=== PATIENT | male | born 1955 | race Caucasian/White ===

== ENCOUNTER 2016-10-04 05:56 | Emergency (ER) | payer BC ==
[~2016-10-04] VITALS: Ht 175.3 cm; Wt 73.0 kg
[~2016-10-04 05:56] MED LIST: ASPI81CH CHEW; LEVO200T4 PO; PRIL20CA9 PO
[2016-10-04 06:00] VITALS: BP 129/79; PULSE 77; RESP 18; TEMP 96.4; O2SAT 98
[2016-10-04] MEDS ORDERED: SODIUM CHLOR 0.9% 1000 ML INJ 1,000 ML IV SCH (06:38)
[2016-10-04] MEDS ORDERED: ONDANSETRON HCL 4 MG/2 ML VIAL IVP ONE (06:45)
[2016-10-04] MEDS ORDERED: SODIUM CHLORIDE 0.9% FLUSH 5 ML FLUSH IVF PRN (06:45)
[2016-10-04] MEDS ORDERED: MORPHINE SULFATE 8 MG/ML INJ IV PUSH ONE (06:45)
[2016-10-04 06:50] VITALS: RESP 16; O2SAT 98
[2016-10-04 06:51] VITALS: BP 123/66; PULSE 77; RESP 16; O2SAT 99
--- NOTE | 2016-10-04 06:51 | PD ---
HPI Chief Complaint: Abdominal Pain Time Seen by Provider: 06:38 Travel History International Travel<30 days: No Contact w/Intl Traveler<30days: No Traveled to known affect area: No History of Present Illness HPI This is a 61-year-old gentleman with a history of pancreatitis, hypertension, hyperlipidemia, previous CVA, previous alcohol abuse, who presents today with complaints of severe abdominal pain with associated nausea vomiting and loose stools 2. Patient states that the abdominal discomfort started yesterday. He states last night he had a bowel movement to relieve the discomfort. He states this morning when he went to go get coffee, he had an episode of severe abdominal pain that doubled him over. He reports that the nausea and vomiting of is associated with the belly pain. He denies any previous history of such but does state that he's had pancreatitis in the past where he's had abdominal pain but not this bad. He reports his pain as a 10 out of 10 on the pain scale. He reports it as diffuse lower abdominal discomfort. It fevers, chills. He states that yesterday he had a hot dog and nothing out of the ordinary. PFSH Past Medical History Hx Anticoagulant Therapy: Yes (ASA-STOPPED 5 DAYS AGO) Blood Disorders: No Anxiety: No Depression: Yes Cancer: No Cardiovascular Problems: No High Cholesterol: Yes Chemotherapy: No Cerebrovascular Accident: Yes Diabetes: No Diminished Hearing: No Endocrine: Yes (FAMILY HX OF DM) Gastrointestinal Disorders: Yes GERD: Yes Genitourinary: No Hepatitis: Yes (HEPATITIS C) Hypertension: Yes Immune Disorder: No Musculoskeletal: No Neurologic: Yes Psychiatric: Yes Immunizations Current: Yes Pancreatitis: Yes Seizures: Yes Thyroid Disease: Yes (HYPO) Tetanus Vaccination: > 5 Years Influenza Vaccination: No Past Surgical History Surgical History: No Previous Surgery Hysterectomy: No Other Surgery: No Social History Alcohol Use: No (states "no more") Tobacco Use: Yes (1PPD) Substance Use: Yes (POT) Allergies-Medications (Allergen,Severity, Reaction): Uncoded Allergies: SELDAN (Allergy, Severe, EDEMA, 10/04/16) Reported Meds & Prescriptions Reported Meds & Active Scripts Active Reported Levothyroxine (Levothyroxine Sodium) 200 Mcg Tab 200 Mcg PO DAILY Prilosec (Omeprazole) 20 Mg Cap 20 Mg PO BID Aspirin 81 Mg Chew 81 Mg CHEW DAILY Review of Systems Except as stated in HPI: all other systems reviewed are Neg General / Constitutional: No: Fever, Chills HENT: No: Headaches, Lightheadedness Cardiovascular: No: Chest Pain or Discomfort, Palpitations Respiratory: No: Cough, Shortness of Breath Gastrointestinal: Positive: Nausea, Vomiting, Diarrhea, Abdominal Pain Genitourinary: No: Frequency, Dysuria Musculoskeletal: No: Weakness, Pain Neurologic: No: Weakness, Dizziness Physical Exam Narrative GENERAL: Well-developed well-nourished gentleman who is actively vomiting when I entered the room. The patient appeared to be diaphoretic. SKIN: Warm and dry. HEAD: Atraumatic. Normocephalic. EYES: No scleral icterus. No injection or drainage. ENT: Mucous membranes pink and moist. NECK: Trachea midline. Supple CARDIOVASCULAR: Regular rate and rhythm. No murmur appreciated. RESPIRATORY: No accessory muscle use. Clear to auscultation. Breath sounds equal bilaterally. GASTROINTESTINAL: Abdomen soft, nondistended. He has tenderness to palpation in his bilateral lower quadrants. There is no rebound with minimal guarding. MUSCULOSKELETAL: No obvious deformities. No edema. NEUROLOGICAL: Awake and alert. No obvious cranial nerve deficits. Motor grossly within normal limits. Normal speech. Data Data Last Documented VS Vital Signs Date Time Temp Pulse Resp B/P Pulse Ox O2 Delivery O2 Flow Rate FiO2 10/04/16 06:51 77 16 123/66 99 Room Air 10/04/16 06:00 96.4 Orders Complete Blood Count With Diff (10/04/16 06:38) Comprehensive Metabolic Panel (10/04/16 06:38) Lipase (10/04/16 06:38) Urinalysis - C+S If Indicated (10/04/16 06:38) Iv Access Insert/Monitor (10/04/16 06:38) Ecg Monitoring (10/04/16 06:38) Oximetry (10/04/16 06:38) Ondansetron Inj (Zofran Inj) (10/04/16 06:45) Sodium Chlor 0.9% 1000 Ml Inj (Ns 1000 M (10/04/16 06:38) Sodium Chloride 0.9% Flush (Ns Flush) (10/04/16 06:45) Abdomen, Upright Only (10/04/16 06:38) Morphine Inj (Morphine Inj) (10/04/16 06:45) Labs Laboratory Tests Test 10/04/16 06:40 White Blood Count 9.0 TH/MM3 Red Blood Count 3.13 MIL/MM3 Hemoglobin 9.5 GM/DL Hematocrit 28.3 % Mean Corpuscular Volume 90.3 FL Mean Corpuscular Hemoglobin 30.3 PG Mean Corpuscular Hemoglobin 33.6 % Concent Red Cell Distribution Width 14.0 % Platelet Count 274 TH/MM3 Mean Platelet Volume 7.2 FL Neutrophils (%) (Auto) 67.6 % Lymphocytes (%) (Auto) 23.1 % Monocytes (%) (Auto) 7.4 % Eosinophils (%) (Auto) 1.5 % Basophils (%) (Auto) 0.4 % Neutrophils # (Auto) 6.1 TH/MM3 Lymphocytes # (Auto) 2.1 TH/MM3 Monocytes # (Auto) 0.7 TH/MM3 Eosinophils # (Auto) 0.1 TH/MM3 Basophils # (Auto) 0.0 TH/MM3 CBC Comment DIFF FINAL Differential Comment MDM Medical Decision Making Medical Screen Exam Complete: Yes Emergency Medical Condition: Yes Medical Record Reviewed: Yes Differential Diagnosis Acute full born illness versus diverticulitis versus appendicitis versus pancreatitis Narrative Course 61-year-old gentleman with history of pancreatitis, hepatitis, previous alcohol abuse, presents today with points of nausea vomiting and loose stools 2. The patient reports the pain is 10 out of 10. The patient has tenderness to palpation in his lower quadrants bilaterally. There is no rebound or guarding noted. Labs are pending at this time including urinalysis. He'll be signed out to Dr. Serna who will follow up on the results and make appropriate disposition pending lab results. Diagnosis Primary Impression: Abdominal pain Additional Impression: Nausea & vomiting Gagandeep Bashir MD Oct 04, 2016 06:51
[2016-10-04 07:08] LABS: AUTOMATED NEUTROPHIL # 6.1 TH/MM3 (1.8-7.7); BASOPHIL % 0.4 % (0.0-2.0); EOSINOPHIL # 0.1 TH/MM3 (0-0.4); EOSINOPHIL % 1.5 % (0.0-4.0); HEMATOCRIT 28.3 % (39.0-51.0); HEMO FLAGS DIFF FINAL; LYMPH % 23.1 % (9.0-44.0); LYMPHOCYTE # 2.1 TH/MM3 (1.0-4.8); MEAN CELL VOLUME 90.3 FL (80.0-100.0); MEAN CORPUSCULAR HEMOGLOBIN 30.3 PG (27.0-34.0); MEAN CORPUSCULAR HGB CONC 33.6 % (32.0-36.0); MONO % 7.4 % (0.0-8.0); NEUT % 67.6 % (16.0-70.0); PLATELET COUNT 274 TH/MM3 (150-450); RED BLOOD COUNT 3.13 MIL/MM3 (4.50-5.90)
[2016-10-04 07:31] LABS: ALT (GPT) 18 U/L (12-78); ANION GAP 8 MEQ/L (5-15); AST (GOT) 15 U/L (15-37); BICARBONATE 25.8 MEQ/L (21.0-32.0); BLOOD UREA NITROGEN 11 MG/DL (7-18); CHLORIDE 104 MEQ/L (98-107); GLOMERULAR FILTRATION RATE 89 ML/MIN (>89); POTASSIUM 3.5 MEQ/L (3.5-5.1); SODIUM (NA) 138 MEQ/L (136-145)
[2016-10-04 07:33] LABS: ALKALINE PHOSPHATASE 69 U/L (45-117); TOTAL BILIRUBIN ADULT 0.4 MG/DL (0.2-1.0)
--- NOTE | 2016-10-04 07:43 | RADRPT ---
EXAM DATE/TIME: 10/04/2016 07:15 [facility] COMPARISON: No previous studies available for comparison. INDICATIONS : Abdominal pain. MEDICAL HISTORY : None. SURGICAL HISTORY : None. ENCOUNTER: Initial ACUITY: 1 day PAIN SCORE: 10/10 LOCATION: Bilateral lower abdomen FINDINGS: A single erect view of the abdomen demonstrates the lower lungs to be clear. No evidence of free int raperitoneal gas. The visualized bowel loops are unremarkable. Heart is at the upper limits of brandon l in terms of size. Calcified plaque involving the thoracic aorta. CONCLUSION: No free air. Jake Major Jr., MD on October 04, 2016 at 7:41 Board Certified Radiologist. This report was verified electronically.
[2016-10-04 08:20] LABS: BLOOD, URINE NEG (NEG); COMMENT (UR) CULT NOT INDICATED; CULTURE IF INDICATED CULT NOT INDICATED; GLUCOSE,URINE NEG (NEG); HYALINE CAST, URINE 1 /lpf (RARE); KETONE, URINE NEG (NEG); MUCUS URINE FEW /lpf (OCC); NITRITE,URINE NEG (NEG); URINE COLOR YELLOW (YELLW/STRAW)
[2016-10-04] MEDS ORDERED: ZOFR4TAB3 SL (08:29)
--- NOTE | 2016-10-04 08:30 | PD ---
Physical Exam Date Seen by Provider: Oct 04, 2016 Time Seen by Provider: 07:00 Narrative Patient signed out to me by Dr. Bashir at 7 AM, please see previous notes for further information. Patient has been having nausea, vomiting, diarrhea, for the past few days. Abdomen is benign and he did not suspect an acute intra- abdominal process. Laboratory Tests Test 10/04/16 10/04/16 06:40 08:10 Red Blood Count 3.13 MIL/MM3 (4.50-5.90) Hemoglobin 9.5 GM/DL (13.0-17.0) Hematocrit 28.3 % (39.0-51.0) Random Glucose 110 MG/DL (74-106) Calcium Level 8.3 MG/DL (8.5-10.1) Albumin 3.1 GM/DL (3.4-5.0) Urine Mucus FEW /lpf (OCC) Last 24 hours Impressions Abdomen X-Ray 10/04/1638 Signed Impressions: Service Date/Time: September 07:15 - CONCLUSION: No free air. Jake Major Jr., MD X-ray of the abdomen did not show any signs of free air or signs of obstruction. Lab work did not indicate significant metabolic issues or dehydration. Patient had been given Zofran and IV fluids in the ER. On reevaluation at 8 AM, he is feeling improved, has had no further vomiting episodes, and at this point my plan would be to release him with follow-up to primary care physician. In addition, it is noted that he has a low hemoglobin of 9.5. Patient denies any black stools or blood in the stools. It is unclear why he is anemic and I have asked him to follow up with primary care physician for this as well. Return for worsening in symptoms as needed. The plan has been discussed with him and he states understanding. Data Data Last Documented VS Vital Signs Date Time Temp Pulse Resp B/P Pulse Ox O2 Delivery O2 Flow Rate FiO2 10/04/16 06:51 77 16 123/66 99 Room Air 10/04/16 06:00 96.4 Orders Complete Blood Count With Diff (10/04/16 06:38) Comprehensive Metabolic Panel (10/04/16 06:38) Lipase (10/04/16 06:38) Urinalysis - C+S If Indicated (10/04/16 06:38) Iv Access Insert/Monitor (10/04/16 06:38) Ecg Monitoring (10/04/16 06:38) Oximetry (10/04/16 06:38) Ondansetron Inj (Zofran Inj) (10/04/16 06:45) Sodium Chlor 0.9% 1000 Ml Inj (Ns 1000 M (10/04/16 06:38) Sodium Chloride 0.9% Flush (Ns Flush) (10/04/16 06:45) Abdomen, Upright Only (10/04/16 06:38) Morphine Inj (Morphine Inj) (10/04/16 06:45) Labs Laboratory Tests Test 10/04/16 10/04/16 06:40 08:10 White Blood Count 9.0 TH/MM3 Red Blood Count 3.13 MIL/MM3 Hemoglobin 9.5 GM/DL Hematocrit 28.3 % Mean Corpuscular Volume 90.3 FL Mean Corpuscular Hemoglobin 30.3 PG Mean Corpuscular Hemoglobin 33.6 % Concent Red Cell Distribution Width 14.0 % Platelet Count 274 TH/MM3 Mean Platelet Volume 7.2 FL Neutrophils (%) (Auto) 67.6 % Lymphocytes (%) (Auto) 23.1 % Monocytes (%) (Auto) 7.4 % Eosinophils (%) (Auto) 1.5 % Basophils (%) (Auto) 0.4 % Neutrophils # (Auto) 6.1 TH/MM3 Lymphocytes # (Auto) 2.1 TH/MM3 Monocytes # (Auto) 0.7 TH/MM3 Eosinophils # (Auto) 0.1 TH/MM3 Basophils # (Auto) 0.0 TH/MM3 CBC Comment DIFF FINAL Differential Comment Sodium Level 138 MEQ/L Potassium Level 3.5 MEQ/L Chloride Level 104 MEQ/L Carbon Dioxide Level 25.8 MEQ/L Anion Gap 8 MEQ/L Blood Urea Nitrogen 11 MG/DL Creatinine 0.87 MG/DL Estimat Glomerular Filtration 89 ML/MIN Rate Random Glucose 110 MG/DL Calcium Level 8.3 MG/DL Total Bilirubin 0.4 MG/DL Aspartate Amino Transf 15 U/L (AST/SGOT) Alanine Aminotransferase 18 U/L (ALT/SGPT) Alkaline Phosphatase 69 U/L Total Protein 6.7 GM/DL Albumin 3.1 GM/DL Lipase 145 U/L Urine Color YELLOW Urine Turbidity CLEAR Urine pH 6.0 Urine Specific [place] 1.018 Urine Protein TRACE mg/dL Urine Glucose (UA) NEG mg/dL Urine Ketones NEG mg/dL Urine Occult Blood NEG Urine Nitrite NEG Urine Bilirubin NEG Urine Urobilinogen LESS THAN 2.0 MG/DL Urine Leukocyte Esterase NEG Urine RBC LESS THAN 1 /hpf Urine WBC LESS THAN 1 /hpf Urine Hyaline Casts 1 /lpf Urine Mucus FEW /lpf Microscopic Urinalysis Comment CULT NOT INDICATED MDM Medical Record Reviewed: Yes Supervised Visit with ALFONSO: No Diagnosis Primary Impression: Abdominal pain Additional Impression: Nausea & vomiting Additional Instruction: Blood your primary care physician know about your low hemoglobin counts. Return for any worsening and vomiting, fevers, pain, and as needed. Med/Other Pt SpecificInfo: Prescription(s) given Scripts Ondansetron Odt (Zofran Odt)4 Mg Tab4 Mg SL Q6HR PRN (Nausea/Vomiting) #7 TAB Ref 0 Prov:Stephan Palacios MD 10/04/16 Disposition: 01 DISCHARGE HOME Condition: Stable Stephan Palacios MD Oct 04, 2016 08:30
[2016-10-04 08:42] VITALS: BP 129/77
== END 2016-10-04 08:46 | disposition home or self-care (01) ==
LOC: NEPE 05:56
DX: R10.9 Unspecified abdominal pain (principal); R11.2 Nausea with vomiting, unspecified; I10 Essential (primary) hypertension; F17.200 Nicotine dependence, unspecified, uncomplicated
CPT/HCPCS: 74000; 80053; 81001; 83690; 85025; 96361; 96374; 96375; 99284; J2270; J2405; J7030

== ENCOUNTER 2017-05-02 19:11 | Emergency (ER) | payer SELFPAY ==
[~2017-05-02] VITALS: Ht 175.3 cm; Wt 79.5 kg
[~2017-05-02 19:11] MED LIST changes: +ZOFR4TAB3 SL
[2017-05-02 19:18] VITALS: BP 118/76; PULSE 95; RESP 20; TEMP 98.9; O2SAT 96
[2017-05-02] MEDS ORDERED: ACETAMINOPHEN/HYDROcodone 325 MG/5 MG TAB ONE (19:57)
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
[2017-05-02] MEDS ORDERED: DICL75TA PO (19:59)
[2017-05-02] MEDS ORDERED: CYCL1TAB29 PO (19:59)
[2017-05-02] MEDS ORDERED: ACETAMINOPHEN/HYDROcodone 325 MG/5 MG TAB PO ONE (20:00)
--- NOTE | 2017-05-02 20:50 | RADRPT ---
EXAM DATE/TIME: 05/02/2017 20:23 [facility] COMPARISON: CHEST SINGLE AP, March 24, 2016, 15:21. INDICATIONS : MCA. Fall. MEDICAL HISTORY : None. SURGICAL HISTORY : None. ENCOUNTER: Initial ACUITY: 1 day PAIN SCORE: 0/10 LOCATION: Bilateral chest FINDINGS: A single view of the chest demonstrates the lungs to be symmetrically aerated without evidence of mas s, infiltrate or effusion. The cardiomediastinal contours are unremarkable. Osseous structures are intact. CONCLUSION: No evidence of acute cardiopulmonary disease. Gabo Velasco MD on May 02, 2017 at 20:48 Board Certified Radiologist. This report was verified electronically.
--- NOTE | 2017-05-02 20:51 | RADRPT ---
EXAM DATE/TIME: 05/02/2017 20:26 [facility] COMPARISON: No previous studies available for comparison. INDICATIONS : MCA. Complains of right knee pain, abrasion to patella. MEDICAL HISTORY : None. SURGICAL HISTORY : None. ENCOUNTER: Initial ACUITY: 1 day PAIN SCORE: 6/10 LOCATION: Right knee FINDINGS: Two view examination of the right knee demonstrates no evidence of fracture or dislocation. Bony min eralization is normal. The suprapatellar soft tissues have a normal configuration. CONCLUSION: Intact right knee. No effusion. No radiopaque foreign body. Gabo Velasco MD on May 02, 2017 at 20:49 Board Certified Radiologist. This report was verified electronically.
== END 2017-05-02 20:49 | disposition home or self-care (01) ==
LOC: NEPK 19:11
DX: S80.01XA Contusion of right knee, initial encounter (principal); S20.211A Contusion of right front wall of thorax, initial encounter; V37.5XXA Driver of three-wheeled motor vehicle injured in collision with fixed or stationary object in traffic accident, initial encounter; Y92.414 Local residential or business street as the place of occurrence of the external cause; I10 Essential (primary) hypertension; E03.9 Hypothyroidism, unspecified; E78.00 Pure hypercholesterolemia, unspecified; K21.9 Gastro-esophageal reflux disease without esophagitis
CPT/HCPCS: 71010; 73560; 99284

== ENCOUNTER 2017-05-04 20:06 | Emergency (ER) | payer OTHER ==
[~2017-05-04 20:06] MED LIST changes: +CYCL1TAB29 PO; +DICL75TA PO
--- NOTE | 2017-05-04 20:22 | PD ---
HPI . Lilly Act/Alcohol intoxication Chief Complaint: lilly act Time Seen by Provider: 20:14 Travel History International Travel<30 days: No Contact w/Intl Traveler<30days: No Traveled to known affect area: No History of Present Illness HPI 61 yr old male here under Carr Act here for making comments about saying "good- bye" to his daughter. He tells me he has been drinking vodka and apparently was not drunk enough almond therefore he called his [id number] and made some comments that prompted her to call the police. He says about 10 police detention attendant showed up at his house and he was handcuffed and brought into the hospital. He tells me he is not suicidal or homicidal. He says that he was drinking and talking "shit." He has no specific complaints. PFSH Past Medical History Hx Anticoagulant Therapy: Yes (ASA-STOPPED 5 DAYS AGO) Blood Disorders: No Anxiety: No Depression: Yes Cancer: No Cardiovascular Problems: No High Cholesterol: Yes Chemotherapy: No Cerebrovascular Accident: Yes Diabetes: No Diminished Hearing: No Endocrine: Yes (FAMILY HX OF DM) Gastrointestinal Disorders: Yes GERD: Yes Genitourinary: No Hepatitis: Yes (HEPATITIS C) Hypertension: Yes Immune Disorder: No Musculoskeletal: No Neurologic: Yes Psychiatric: Yes Immunizations Current: Yes Pancreatitis: Yes Seizures: Yes Thyroid Disease: Yes (HYPO) Past Surgical History Hysterectomy: No Other Surgery: No Social History Alcohol Use: Yes ("almost daily") Tobacco Use: Yes (1PPD) Substance Use: Yes (marijaunia occasionally) Allergies-Medications (Allergen,Severity, Reaction): Uncoded Allergies: SELDAN (Allergy, Severe, EDEMA, 10/04/16) Reported Meds & Prescriptions Reported Meds & Active Scripts Active Flexeril (Cyclobenzaprine HCl) 10 Mg Tab 10 Mg PO TID Diclofenac Sodium DR (Diclofenac Sodium) 75 Mg Tabdr 75 Mg PO BID Zofran Odt (Ondansetron Odt) 4 Mg Tab 4 Mg SL Q6HR PRN Reported Omeprazole 20 Mg Tab 20 Mg PO DAILY Levothyroxine (Levothyroxine Sodium) 200 Mcg Tab 200 Mcg PO DAILY Aspirin 81 Mg Chew 81 Mg CHEW DAILY Review of Systems General / Constitutional: No: Fever Eyes: No: Visual changes HENT: No: Headaches Cardiovascular: No: Chest Pain or Discomfort Respiratory: No: Shortness of Breath Gastrointestinal: No: Abdominal Pain Genitourinary: No: Dysuria Musculoskeletal: No: Pain Skin: No Rash Neurologic: No: Weakness Psychiatric: Positive: Suicidal Ideations, Substance Abuse, No: Depression Endocrine: No: Polydipsia Hematologic/Lymphatic: No: Easy Bruising Physical Exam Narrative GENERAL: AAO x 3, no acute distress, Well-nourished, well-developed patient. SKIN: Warm and dry. No visible rashes or bruising. HEAD: Normocephalic and atraumatic. EYES: No scleral icterus. No injection or drainage. EOM intact, PERRLA ENT: No nasal drainage noted. Mucous membranes pink. Airway patent. NECK: Supple, trachea midline. No JVD. CARDIOVASCULAR: Regular rate and rhythm without murmurs, gallops, or rubs. RESPIRATORY: Breath sounds equal bilaterally. No accessory muscle use. No rhonchi or rales. GASTROINTESTINAL: visual inspection normal EXTREMITIES: No cyanosis or edema. BACK: No obvious deformity. NEURO: CN II-12 intact, sliding joint maker strength normal b/l, UE and LE 5/5, no focal deficits PSYCH: AAO x 3, normal affect. Data Data Last Documented VS Vital Signs Date Time Temp Pulse Resp B/P (MAP) Pulse Ox O2 Delivery O2 Flow Rate FiO2 05/05/17 02:19 118 18 137/65 (89) 05/04/17 23:58 98.1 97 Orders Orders Complete Blood Count With Diff (05/04/17 20:23) Comprehensive Metabolic Panel (05/04/17 20:23) Psych Screen (05/04/17 20:23) Drug Screen, Random Urine (05/04/17 20:23) Alcohol (Ethanol) (05/04/17 20:23) Diet Regular Basic (05/04/17 Dinner) Pantoprazole Inj (Protonix Inj) (05/04/17 21:15) Iv Access Insert/Monitor (05/04/17 21:14) Alcohol Withdrawal Asmt-Ciwa ONCE (05/04/17 21:14) Ondansetron Inj (Zofran Inj) (05/04/17 21:15) Flumazenil Inj (Romazicon Inj) (05/04/17 21:15) Lorazepam (Ativan) (9/16/17 21:15) Lorazepam Inj (Ativan Inj) (05/04/17 21:15) Lorazepam (Ativan) (05/04/17 21:15) Lorazepam Inj (Ativan Inj) (05/04/17 21:15) Lorazepam Inj (Ativan Inj) (05/04/17 21:15) Lorazepam Inj (Ativan Inj) (05/04/17 21:15) Al-Mag Hy-Si 40-40-4 Mg/Ml Liq (Mag-Al P (05/04/17 23:00) Lidocaine 2% Viscous (Xylocaine 2% Visco (05/04/17 23:00) Ranitidine Liq (Zantac Liq) (05/05/17 02:45) Diet Regular Basic (05/05/17 Breakfast) Labs Laboratory Tests Test 05/04/17 20:15 05/05/17 06:20 White Blood Count 14.7 TH/MM3 Red Blood Count 5.75 MIL/MM3 Hemoglobin 17.0 GM/DL Hematocrit 50.0 % Mean Corpuscular Volume 87.0 FL Mean Corpuscular Hemoglobin 29.6 PG Mean Corpuscular Hemoglobin Concent 34.0 % Red Cell Distribution Width 13.1 % Platelet Count 244 TH/MM3 Mean Platelet Volume 8.2 FL Neutrophils (%) (Auto) 76.7 % Lymphocytes (%) (Auto) 18.8 % Monocytes (%) (Auto) 3.6 % Eosinophils (%) (Auto) 0.3 % Basophils (%) (Auto) 0.6 % Neutrophils # (Auto) 11.3 TH/MM3 Lymphocytes # (Auto) 2.8 TH/MM3 Monocytes # (Auto) 0.5 TH/MM3 Eosinophils # (Auto) 0.0 TH/MM3 Basophils # (Auto) 0.1 TH/MM3 CBC Comment DIFF FINAL Differential Comment Blood Urea Nitrogen 18 MG/DL Creatinine 0.95 MG/DL Random Glucose 85 MG/DL Total Protein 7.7 GM/DL Albumin 3.9 GM/DL Calcium Level 10.1 MG/DL Alkaline Phosphatase 67 U/L Aspartate Amino Transf (AST/SGOT) 28 U/L Alanine Aminotransferase (ALT/SGPT) 27 U/L Total Bilirubin 0.4 MG/DL Sodium Level 141 MEQ/L Potassium Level 3.5 MEQ/L Chloride Level 103 MEQ/L Carbon Dioxide Level 23.5 MEQ/L Anion Gap 15 MEQ/L Estimat Glomerular Filtration Rate 80 ML/MIN Ethyl Alcohol Level 264 MG/DL Urine Opiates Screen NEG Urine Barbiturates Screen NEG Urine Amphetamines Screen NEG Urine Benzodiazepines Screen NEG Urine Cocaine Screen NEG Urine Cannabinoids Screen NEG MDM Medical Decision Making Medical Screen Exam Complete: Yes Emergency Medical Condition: Yes Medical Record Reviewed: Yes Differential Diagnosis alcohol abuse, alcohol intoxication, drug induced mood disorder Narrative Course 61 yr old male here under Carr Act. I have ordered labs. If they are WNL he will be medically cleared for psych screen. I have ordered him a regular diet tray. Diagnosis Primary Impression: Suicidal ideations Additional Impression: Alcohol intoxication Qualified Codes: F10.929 - Alcohol use, unspecified with intoxication, unspecified Condition: Stable Jenelle Brannon May 04, 2017 20:22
[2017-05-04 20:56] LABS: AUTOMATED NEUTROPHIL # 11.3 TH/MM3 (1.8-7.7); BASOPHIL # 0.1 TH/MM3 (0-0.2); BASOPHIL % 0.6 % (0.0-2.0); EOSINOPHIL % 0.3 % (0.0-4.0); HEMO FLAGS DIFF FINAL; LYMPH % 18.8 % (9.0-44.0); LYMPHOCYTE # 2.8 TH/MM3 (1.0-4.8); MEAN CORPUSCULAR HEMOGLOBIN 29.6 PG (27.0-34.0); MONO % 3.6 % (0.0-8.0); NEUT % 76.7 % (16.0-70.0); PLATELET COUNT 244 TH/MM3 (150-450); RED BLOOD COUNT 5.75 MIL/MM3 (4.50-5.90); RED CELL DISTRIBUTION WIDTH 13.1 % (11.6-17.2); WHITE BLOOD COUNT 14.7 TH/MM3 (4.0-11.0)
[2017-05-04 21:02] LABS: ANION GAP 15 MEQ/L (5-15); AST (GOT) 28 U/L (15-37); BICARBONATE 23.5 MEQ/L (21.0-32.0); BLOOD UREA NITROGEN 18 MG/DL (7-18); CHLORIDE 103 MEQ/L (98-107); GLOMERULAR FILTRATION RATE 80 ML/MIN (>89); POTASSIUM 3.5 MEQ/L (3.5-5.1); SODIUM (NA) 141 MEQ/L (136-145)
[2017-05-04 21:03] LABS: ALT (GPT) 27 U/L (12-78)
[2017-05-04 21:05] LABS: ALKALINE PHOSPHATASE 67 U/L (45-117); TOTAL BILIRUBIN ADULT 0.4 MG/DL (0.2-1.0)
[2017-05-04] MEDS ORDERED: OMEP20TA PO (21:11)
[2017-05-04 21:15] LABS: ALCOHOL 264 MG/DL (0-5)
[2017-05-04] MEDS ORDERED: ONDANSETRON HCL 4 MG/2 ML VIAL IV PUSH PRN (21:15)
[2017-05-04] MEDS ORDERED: LORazepam 2 MG/ML VIAL IV PUSH PRN ×4 (21:15)
[2017-05-04] MEDS ORDERED: PANTOPRAZOLE SODIUM 40 MG VIAL IV PUSH ONE (21:15)
[2017-05-04] MEDS ORDERED: LORazepam 1 MG TAB PO PRN (21:15)
[2017-05-04] MEDS ORDERED: LORazepam 2 MG TAB PO PRN (21:15)
[2017-05-04] MEDS ORDERED: FLUMAZENIL 0.5 MG/5 ML VIAL IV PUSH PRN (21:15)
[2017-05-04] MEDS ORDERED: ALUMINUM/MAGNESIUM/SIMETH 30 ML CUP PO ONE (23:00)
[2017-05-04] MEDS ORDERED: LIDOCAINE VISCOUS 2% SOLN 15 ML UDC PO ONE (23:00)
[2017-05-04 23:58] VITALS: BP 158/73; PULSE 76; RESP 18; TEMP 98.1; O2SAT 97
[2017-05-05 02:19] VITALS: BP 137/65; PULSE 118; RESP 18
[2017-05-05] MEDS ORDERED: RANITIDINE HCL SYRUP 150 MG/10 ML UDC PO ONE (02:45)
--- NOTE | 2017-05-05 10:19 | PD ---
Physical Exam Date Seen by Provider: May 05, 2017 Time Seen by Provider: 10:18 Narrative Patient seen and cleared by psych. He is not suicidal or homicidal. Data Data Last Documented VS Vital Signs Date Time Temp Pulse Resp B/P (MAP) Pulse Ox O2 Delivery O2 Flow Rate FiO2 05/05/17 02:19 118 18 137/65 (89) 05/04/17 23:58 98.1 97 Orders Orders Complete Blood Count With Diff (05/04/17 20:23) Comprehensive Metabolic Panel (05/04/17 20:23) Psych Screen (05/04/17 20:23) Drug Screen, Random Urine (05/04/17 20:23) Alcohol (Ethanol) (05/04/17 20:23) Diet Regular Basic (05/04/17 Dinner) Pantoprazole Inj (Protonix Inj) (05/04/17 21:15) Iv Access Insert/Monitor (05/04/17 21:14) Alcohol Withdrawal Asmt-Ciwa ONCE (05/04/17 21:14) Ondansetron Inj (Zofran Inj) (05/04/17 21:15) Flumazenil Inj (Romazicon Inj) (05/04/17 21:15) Lorazepam (Ativan) (05/04/17 21:15) Lorazepam Inj (Ativan Inj) (05/04/17 21:15) Lorazepam (Ativan) (05/04/17 21:15) Lorazepam Inj (Ativan Inj) (05/04/17 21:15) Lorazepam Inj (Ativan Inj) (05/04/17 21:15) Lorazepam Inj (Ativan Inj) (05/04/17 21:15) Al-Mag Hy-Si 40-40-4 Mg/Ml Liq (Mag-Al P (05/04/17 23:00) Lidocaine 2% Viscous (Xylocaine 2% Visco (05/04/17 23:00) Ranitidine Liq (Zantac Liq) (05/05/17 02:45) Diet Regular Basic (05/05/17 Breakfast) Labs Laboratory Tests Test 05/04/17 20:15 05/05/17 06:20 White Blood Count 14.7 TH/MM3 Red Blood Count 5.75 MIL/MM3 Hemoglobin 17.0 GM/DL Hematocrit 50.0 % Mean Corpuscular Volume 87.0 FL Mean Corpuscular Hemoglobin 29.6 PG Mean Corpuscular Hemoglobin Concent 34.0 % Red Cell Distribution Width 13.1 % Platelet Count 244 TH/MM3 Mean Platelet Volume 8.2 FL Neutrophils (%) (Auto) 76.7 % Lymphocytes (%) (Auto) 18.8 % Monocytes (%) (Auto) 3.6 % Eosinophils (%) (Auto) 0.3 % Basophils (%) (Auto) 0.6 % Neutrophils # (Auto) 11.3 TH/MM3 Lymphocytes # (Auto) 2.8 TH/MM3 Monocytes # (Auto) 0.5 TH/MM3 Eosinophils # (Auto) 0.0 TH/MM3 Basophils # (Auto) 0.1 TH/MM3 CBC Comment DIFF FINAL Differential Comment Blood Urea Nitrogen 18 MG/DL Creatinine 0.95 MG/DL Random Glucose 85 MG/DL Total Protein 7.7 GM/DL Albumin 3.9 GM/DL Calcium Level 10.1 MG/DL Alkaline Phosphatase 67 U/L Aspartate Amino Transf (AST/SGOT) 28 U/L Alanine Aminotransferase (ALT/SGPT) 27 U/L Total Bilirubin 0.4 MG/DL Sodium Level 141 MEQ/L Potassium Level 3.5 MEQ/L Chloride Level 103 MEQ/L Carbon Dioxide Level 23.5 MEQ/L Anion Gap 15 MEQ/L Estimat Glomerular Filtration Rate 80 ML/MIN Ethyl Alcohol Level 264 MG/DL Urine Opiates Screen NEG Urine Barbiturates Screen NEG Urine Amphetamines Screen NEG Urine Benzodiazepines Screen NEG Urine Cocaine Screen NEG Urine Cannabinoids Screen NEG [facility] Medical Record Reviewed: Yes Supervised Visit with ALFONSO: No Diagnosis Primary Impression: Suicidal ideations Additional Impression: Alcohol intoxication Qualified Codes: F10.929 - Alcohol use, unspecified with intoxication, unspecified Referrals: [facility] (Out patient) call for appointment Patient Instructions: General Instructions, At-Risk Alcohol Use (ED) Departure Forms: Tests/Procedures Disposition: 01 DISCHARGE HOME Condition: Stable Jenelle Brannon May 05, 2017 10:19
--- NOTE | 2017-05-05 12:22 | PD.PSY.CON ---
Provisional Diagnosis Admission Date Lily Dale I. Alcohol induced mood disorder, alcohol use disorder Lily Dale II. Deferred Lily Dale III. Hypothyroidism History of Present Illness Service Psychiatry Consult Requested By Reason for Consult Suicidal statement Primary Care Physician No Primary Care Physician HPI The patient is a 61 year old man, domicile with a friend, single, on Social Security, with psychiatric history of alcohol use disorder, multiple ER visits to [facility] due to alcohol related problems, medical history of hypothyroidism, who is here under Carr Act here for making comments about saying "good-bye" to his daughter. He tells me he has been drinking vodka and apparently was not drunk enough almond therefore he called his [id number] and made some comments that prompted her to call the police. He says about 10 examining officer showed up at his house and he was handcuffed and brought into the hospital. She says that he never made any suicidal statement and he did not wanted to . At this moment the patient denies depression, denies anxiety , denies psychosis, denies suicidal and homicidal ideation, he denies visual and auditory hallucinations. Patient reports daily use of alcohol, he refused to quantify. Review of Systems Constitutional: DENIES: Diaphoretic episodes, Fatigue, Fever, Weight gain, Weight loss, Chills, Dizziness, Change in appetite, Night Sweats Endocrine: DENIES: Heat/cold intolerance, Polydipsia, Polyuria, Polyphagia Eyes: DENIES: Blurred vision, Diplopia, Eye inflammation, Eye pain, Vision loss , Photosensitivity, Double Vision Ears, nose, mouth, throat: DENIES: Tinnitus, Hearing loss, Vertigo, Nasal discharge, Oral lesions, Throat pain, Hoarseness, Ear Pain, Running Nose, Epistaxis, Sinus Pain, Toothache, Odynophagia Respiratory: DENIES: Apneas, Cough, Snoring, Wheezing, Hemoptysis, Sputum production, Shortness of breath Cardiovascular: DENIES: Chest pain, Palpitations, Syncope, Dyspnea on Exertion , PND, Lower Extremity Edema, Orthopnea, Claudication Gastrointestinal: DENIES: Abdominal pain, Black stools, Bloody stools, Constipation, Diarrhea, Nausea, Vomiting, Difficulty Swallowing, Anorexia Musculoskeletal: DENIES: Joint pain, Muscle aches, Stiffness, Joint Swelling, Back pain, Neck pain Integumentary: DENIES: Abnormal pigmentation, Nail changes, Pruritus, Rash Hematologic/lymphatic: DENIES: Bruising, Lymphadenopathy Immunologic/allergic: DENIES: Eczema, Urticaria Neurologic: DENIES: Abnormal gait, Headache, Localized weakness, Paresthesias, Seizures, Speech Problems, Tremor, Poor Balance Psychiatric: DENIES: Anxiety, Confusion, Mood changes, Depression, Hallucinations, Agitation, Suicidal Ideation, Homicidal Ideation, Delusions Past Family Social History Uncoded Allergies: SELDAN (Allergy, Severe, EDEMA, 10/04/16) Active Scripts Cyclobenzaprine (Flexeril) 10 Mg Tab, 10 MG PO TID for Muscle Spasm, #21 TAB 0 Refills Prov:Umair Shields MD 05/02/[address] (Diclofenac Sodium DR) 75 Mg Tabdr, 75 MG PO BID, #20 TAB 0 Refills Prov:Umair Shields MD 05/02/17 Ondansetron Odt (Zofran Odt) 4 Mg Tab, 4 MG SL Q6HR Y for Nausea/Vomiting, #7 TAB 0 Refills Prov:Stephan Palacios MD 10/04/16 Reported Medications Omeprazole (Omeprazole) 20 Mg Tab, 20 MG PO DAILY, #30 TAB 0 Refills 05/04/17 Levothyroxine (Levothyroxine) 200 Mcg Tab, 200 MCG PO DAILY for Thyroid, #30 TAB 0 Refills 08/04/16 Aspirin (Aspirin) 81 Mg Chew, 81 MG CHEW DAILY, TAB 0 Refills 08/04/16 Current Medications Medications (Trade) Dose Ordered Sig/Sam Route Start Time Stop Time Status Last Admin (Zofran Inj) 4 mg Q8H PRN IV PUSH 05/04/17 21:15 (Romazicon Inj) 0.2 mg Q1M PRN IV PUSH 05/04/17 21:15 (Ativan) 1 mg Q4H PRN PO 05/04/17 21:15 05/05/17 02:34 (Ativan Inj) 1 mg Q4H PRN IV PUSH 05/04/17 21:15 (Ativan) 2 mg Q2H PRN PO 05/04/17 21:15 (Ativan Inj) 2 mg Q2H PRN IV PUSH 05/04/17 21:15 (Ativan Inj) 2 mg Q1H PRN IV PUSH 05/04/17 21:15 (Ativan Inj) 2 mg Q15M PRN IV PUSH 05/04/17 21:15 Family History No psychiatric family history Social History Patient was born and raised in [place] [facility], he lives [place] with a friend, unemployed, supported by [facility], his highest level of education is some college credits Patient's Strengths (min. 2) Verbal communication Physical Exam Vital Signs Vital Signs Date Time Temp Pulse Resp B/P (MAP) Pulse Ox O2 Delivery O2 Flow Rate FiO2 05/05/17 02:19 118 18 137/65 (89) 05/04/17 23:58 98.1 97 Lab Results Test 05/04/17 20:15 05/05/17 06:20 White Blood Count 14.7 TH/MM3 Red Blood Count 5.75 MIL/MM3 Hemoglobin 17.0 GM/DL Hematocrit 50.0 % Mean Corpuscular Volume 87.0 FL Mean Corpuscular Hemoglobin 29.6 PG Mean Corpuscular Hemoglobin Concent 34.0 % Red Cell Distribution Width 13.1 % Platelet Count 244 TH/MM3 Mean Platelet Volume 8.2 FL Neutrophils (%) (Auto) 76.7 % Lymphocytes (%) (Auto) 18.8 % Monocytes (%) (Auto) 3.6 % Eosinophils (%) (Auto) 0.3 % Basophils (%) (Auto) 0.6 % Neutrophils # (Auto) 11.3 TH/MM3 Lymphocytes # (Auto) 2.8 TH/MM3 Monocytes # (Auto) 0.5 TH/MM3 Eosinophils # (Auto) 0.0 TH/MM3 Basophils # (Auto) 0.1 TH/MM3 CBC Comment DIFF FINAL Differential Comment Blood Urea Nitrogen 18 MG/DL Creatinine 0.95 MG/DL Random Glucose 85 MG/DL Total Protein 7.7 GM/DL Albumin 3.9 GM/DL Calcium Level 10.1 MG/DL Alkaline Phosphatase 67 U/L Aspartate Amino Transf (AST/SGOT) 28 U/L Alanine Aminotransferase (ALT/SGPT) 27 U/L Total Bilirubin 0.4 MG/DL Sodium Level 141 MEQ/L Potassium Level 3.5 MEQ/L Chloride Level 103 MEQ/L Carbon Dioxide Level 23.5 MEQ/L Anion Gap 15 MEQ/L Estimat Glomerular Filtration Rate 80 ML/MIN Ethyl Alcohol Level 264 MG/DL Urine Opiates Screen NEG Urine Barbiturates Screen NEG Urine Amphetamines Screen NEG Urine Benzodiazepines Screen NEG Urine Cocaine Screen NEG Urine Cannabinoids Screen NEG Mental Status Examination Appearance man, [facility], age appearing, calm and cooperative Speech: Unremarkable Orientation: x3 Memory: Unremarkable Thought Process: Logical Thought Content: Unremarkable Hallucination Type: None Suicidal Ideation: No Previous Suicide Attempts: No Homicidal Ideation: No Previous Homicide Attempts: No Judgment: WNL Affect: Good Mood: Appropriate Motor Activity: Normal gait Assessment & Plan Problem List: (1) Alcohol abuse with alcohol-induced mood disorder ICD Codes: F10.14 - Alcohol abuse with alcohol-induced mood disorder Assessment & Plan: On psychiatric evaluation today the patient does not present any concerning, acute or significant symptomatology of depression that requires an immediate psychiatric intervention or attention. Patient denies depressive symptoms, he denies anxiety, he denies jenifer or psychosis. Patient is calm and cooperative, logical coherent and relevant. He denies suicidal and homicidal ideation, he denies visual and auditory hallucinations. Patient is clinically sober at this moment. No agitation, no aggressive behavior paranoia or delusions present. Recent episode that triggers Carr acting the patient seems to be the result of acute substance intoxication rather than to a primary major psychiatric illness decompensation. He does not meet criteria for psychiatric admission. Extensive support, motivation and psychoeducation provided. Carr act can be lifted. Assessment & Plan Estimated LOS: Benito Russell MD May 05, 2017 12:22
== END 2017-05-05 14:08 | disposition home or self-care (01) ==
LOC: NEPD 20:06 → NEPJ 05-05 14:08
DX: F10.14 Alcohol abuse with alcohol-induced mood disorder (principal); R45.851 Suicidal ideations; I10 Essential (primary) hypertension; E03.9 Hypothyroidism, unspecified; K21.9 Gastro-esophageal reflux disease without esophagitis; F32.9 Major depressive disorder, single episode, unspecified; F17.200 Nicotine dependence, unspecified, uncomplicated
CPT/HCPCS: 80053; 80307; 85025; 96374; 99284; C9113